=== PATIENT | female | born 1965 | race Two or more races ===

== ENCOUNTER 2023-09-14 09:56 | Emergency (ER) | payer BC ==
[~2023-09-14] VITALS: Ht 165.1 cm; Wt 108.9 kg
[2023-09-14] MEDS ORDERED: LEVOTHYROXINE25 MCG PO (10:01)
== END 2023-09-14 12:56 | disposition home or self-care (01) ==
LOC: ER 09:56
DX: S80.02XA Contusion of left knee, initial encounter (principal); S80.01XA Contusion of right knee, initial encounter; S30.0XXA Contusion of lower back and pelvis, initial encounter; W19.XXXA Unspecified fall, initial encounter; Y93.89 Activity, other specified; Y92.89 Other specified places as the place of occurrence of the external cause; Y99.8 Other external cause status; E11.9 Type 2 diabetes mellitus without complications